=== PATIENT | male | born 1950 | race Caucasian/White ===

== ENCOUNTER 2019-07-19 14:08 | Emergency (ER) | payer MEDICARE, SELFPAY ==
[2019-07-19 14:51] VITALS: BP 161/88; PULSE 128; RESP 18; TEMP 36.3; O2SAT 92; BMI 20.7
--- NOTE | 2019-07-19 14:57 | PC.NURSE ---
Patient seated back in the waiting room at this time. Will continue to monitor.
--- NOTE | 2019-07-19 15:33 | ED_ITS ---
Entered by Taylor Alexandra, acting as scribe for Vinh De La Torre MD, [facility] [place] Jul 19, 2019 14:08 HPI - Neck Pain/Injury General: Chief Complaint: Neck Pain/Injury Stated Complaint: neck/shoulder pain/numbness Time Seen by Provider: 07/19/19 15:34 Source: patient, family and RN notes reviewed Mode of arrival: ambulatory Limitations: no limitations History of Present Illness: HPI Narrative: 69 yo male presents to ED with pain in the L side of his neck (began today) that goes down through his L shoulder. Last year he had shingles and he is now experiencing pain from his L elbow, under his L arm and down his L side. The L sided neck pain is not bad as long as he sits still; if he gets up and moves the pain is worse in his neck, if he raises his R arm too high it makes it worse. He states he has no rash. He said his L side is painful to touch. The pain in his neck and L shoulder are not reproducible. About 2 years ago the patient was noted to have a lung mass however, he declined to have it biopsied or worked up further as he did not want any intervention. At that time they told him it was near a nerve and it may grow and encompassed that nerve. He is not sure what the status of the lung masses MD complaint: neck pain Onset (ago): day(s) (1) Place: home Radiation: left shoulder and left upper extremity Severity: severe Quality: sharp and aching Duration: constant Relieving factors: remaining still Exacerbating factors: movement of extremity and movement of neck Context: other (recent history of shingles) Associated symptoms: Reports weakness; Denies headache(s) or nausea Treatments prior to arrival: other (Gabapentin) Review of Systems General: Reports: 10 or more systems reviewed and unremarkable except in HPI and below Const: Denies: fever, chills or body aches Eyes: Reports: blind spots; Denies: change in vision or blurry vision ENMT: Denies: throat pain, enlarged tonsils, painful swallowing, hoarseness, mouth pain or swelling of lips/tongue Card: Reports: chest pain; Denies: palpitations, edema or swelling of feet/ankles Resp: Denies: shortness of breath, productive cough or non-productive cough GI: Denies: abdominal pain, nausea or vomiting : Denies: flank pain, painful urination, urinary frequency, urinary urgency or urinary hesitancy Musc: Denies: neck pain, back pain or extremity swelling Skin/Breast: Denies: rash, itching or redness Neuro: Denies: headache, numbness in extremities or weakness in extremities Endo: Denies: excessive urination, excessive thirst or tired all the time PFSH ED PFSH: Social History Smoking and tobacco status: current every day smoker Physical Exam Const: COMMON NORMALS: no apparent distress, average body habitus, oriented x3, no limitations, healthy appearing, alert and well nourished HENMT: COMMON NORMALS: normocephalic, head/scalp atraumatic and moist oral mucous membranes HEAD & SCALP: normocephalic and atraumatic Eye: COMMON NORMALS: PERRL, EOMs intact bilaterally, conjunctivae normal and no scleral icterus CONJUNCTIVA: Yes conjunctivae normal PUPIL: Yes PERRL Neck/C-Spine: COMMON NORMALS: full ROM, supple, no meningeal signs, no JVD and no carotid bruits OTHER: No tenderness to palpation Chest: COMMONS NORMALS: inspection of chest normal and palpation of chest normal Resp: COMMON NORMALS: normal respiratory effort, no retractions, no use of accessory muscles, clear to auscultation bilaterally and percussion normal AUSCULTATION: clear to auscultation bilaterally PERCUSSION: percussion normal Cardio: COMMON NORMALS: no JVD, S1 normal heart sound, S2 normal heart sound, no gallops, no clicks, no murmurs, no rub and peripheral pulses 2+ throughout RATE: tachycardic (128) RHYTHM: abnormal rhythm irregularly irregular HEART SOUNDS: S1 normal and S2 normal PERIPHERAL PULSES: pulses 2+ throughout GI: COMMON NORMALS: normal to inspection, nondistended, normoactive bowel soun ds, soft to palpation, non-tender, no hepatosplenomegaly, no masses and no bruits PALPATION: Yes soft and Yes no hepatosplenomegaly : COMMON NORMALS: Yes no CVA tenderness BLADDER/KIDNEY EXAM: Yes no CVA tenderness Back/Pelvis: COMMON NORMALS: no CVA tenderness Extremity: COMMON NORMALS: normal to inspection, full ROM, normal capillary refill, no calf tenderness and no pedal edema Neuro: COMMON NORMALS: oriented x3 SENSORIUM/ORIENTATION: Yes alert MENINGEAL SIGNS: Yes no meningeal signs Skin: COMMON NORMALS: no rashes or lesions noted, no wounds, skin turgor normal, no jaundice, no petechiae and no mottling GENERAL SKIN EXAM: no rashes or lesions noted and turgor normal Course Vital Signs: Vital signs: Vital Signs Temperature 97.4 F L 07/19/19 14:51 Pulse Rate 121 H 07/19/19 17:30 Respiratory Rate 20 H 07/19/19 17:30 Blood Pressure 146/104 07/19/19 17:30 Pulse Oximetry 94 07/19/19 17:30 MDM - Neck Pain/Injury MDM Narrative: Medical decision making narrative: 69-year-old gentleman who presents to the emergency department with left-sided neck pain. He has a history of a left upper lobe lung mass that he declined to have investigated about 2 years ago. On evaluation here he had negative troponin x2, however chest x-ray shows an enlargement of the lung mass. I discussed further evaluation of the mass with a CT scan, however the patient declined since he says he is not going to pursue any investigation. He just wants pain control and to be able to rest as he has not been sleeping because of the pain. He was given a dose of intravenous morphine which helped with his pain. He was also discharged home with prescription for Percocet. He was advised to follow-up with his primary care provider for further discussions on management options going forward including possible hospice care. Discussed possible complications going forward including thoracic outlet obstruction. Lab Data: Labs: Lab Results 07/19/19 07/19/19 07/19/19 Range/Units 16:20 16:20 16:20 WBC 11.4 H (4.0-10.0) 10^3/ uL RBC 4.47 (4.1-5.3) 10^6/u L Hgb 10.8 L (11.7-16.6) g/dL Hct 36.4 L (42.0-52.0) % MCV 81.4 (80-94) fL MCH 24.2 L (28.0-34.0) pg MCHC 29.7 L (30.0-36.0) g/dL RDW 16.1 H (12.1-15.1) % Plt Count 475 H (130-400) 10^3/c mm MPV 10.2 (7.4-10.4) fL Neut % (Auto) 83.0 % Lymph % (Auto) 7.9 % [place] % (Auto) 7.7 % Eos % (Auto) 0.7 % Baso % (Auto) 0.4 % Neut # (Auto) 9.4 H (1.8-7.7) 10^3/u L Lymph # (Auto) 0.9 (0.8-4.8) 10^3/u L [place] # (Auto) 0.9 (0.2-0.9) 10^3/u L Eos # (Auto) 0.1 (0.0-0.8) 10^3/u L Baso # (Auto) 0.1 (0.0-0.1) 10^3/u L Nucleated RBC % (a uto) 0 % Nucleated RBCs # 0.0 /100WBC D-Dimer 0.41 (0-0.59) ug/mIFE U Sodium 137 (136-145) mmol/L Potassium 4.4 (3.5-5.1) mmol/L Chloride 101 (98-107) mmol/L Carbon Dioxide 24 (22-29) mmol/L Anion Gap 16.4 (5-19) BUN 17 (8-23) mg/dL Creatinine 0.7 (0.7-1.2) mg/dL GFR Calculation 111.5 (90-130) mL/min Glucose 109 (65-115) mg/dL Calcium 12.4 H (8.5-10.5) mg/dL Total Bilirubin 0.2 (0.15-1.2) mg/dL AST 12 (0-40) U/L ALT 10 (0-41) U/L Alkaline Phosphata se 131 H (40-130) IU/L Troponin T Baselin e (0-15) ng/mL Troponin T 120 Min morongo (0-15) ng/mL Delta Troponin T (0-10) ABS# NT-Pro-B Natriuret Pep 265 H (0-125) pg/mL Total Protein 8.0 (6.6-8.7) g/dL Albumin 4.2 (3.5-5.2) g/dL Globulin 3.8 (1.3-4.6) g/dL 07/19/19 07/19/19 Range/Units 16:20 18:16 WBC (4.0-10.0) 10^3/ uL RBC (4.1-5.3) 10^6/u L Hgb (11.7-16.6) g/dL Hct (42.0-52.0) % MCV (80-94) fL MCH (28.0-34.0) pg MCHC (30.0-36.0) g/dL RDW (12.1-15.1) % Plt Count (130-400) 10^3/c mm MPV (7.4-10.4) fL Neut % (Auto) % Lymph % (Auto) % [place] % (Auto) % Eos % (Auto) % Baso % (Auto) % Neut # (Auto) (1.8-7.7) 10^3/u L Lymph # (Auto) (0.8-4.8) 10^3/u L [place] # (Auto) (0.2-0.9) 10^3/u L Eos # (Auto) (0.0-0.8) 10^3/u L Baso # (Auto) (0.0-0.1) 10^3/u L Nucleated RBC % (a uto) % Nucleated RBCs # /100WBC D-Dimer (0-0.59) ug/mIFE U Sodium (136-145) mmol/L Potassium (3.5-5.1) mmol/L Chloride (98-107) mmol/L Carbon Dioxide (22-29) mmol/L Anion Gap (5-19) BUN (8-23) mg/dL Creatinine (0.7-1.2) mg/dL GFR Calculation (90-130) mL/min Glucose (65-115) mg/dL Calcium (8.5-10.5) mg/dL Total Bilirubin (0.15-1.2) mg/dL AST (0-40) U/L ALT (0-41) U/L Alkaline Phosphata se (40-130) IU/L Troponin T Baselin e 11 (0-15) ng/mL Troponin T 120 Min morongo 10.20 (0-15) ng/mL Delta Troponin T -0.80 L (0-10) ABS# NT-Pro-B Natriuret Pep (0-125) pg/mL Total Protein (6.6-8.7) g/dL Albumin (3.5-5.2) g/dL Globulin (1.3-4.6) g/dL EKG Data^: EKG 1: Attestation: I personally reviewed and interpreted this EKG as follows: EKG interpretation date: 07/19/19 EKG interpretation time: 16:29 Prior EKG tracings: not available for review Interpretation: Sinus tachycardia with PAC. No ST changes. Right ventricular conduction delay EKG 2: Attestation: I personally reviewed and interpreted this EKG as follows: EKG interpretation date: 07/19/19 EKG interpretation time: 18:25 Prior EKG tracings: available for review Interpretation: Unchanged from EKG from earlier today. Discharge Plan Discharge Patient Disposition: Home, Self-Care Clinical Impression: Lung mass, Neck pain, Hypercalcemia Condition: Stable Prescriptions: New oxycodone-acetaminophen 5-300 mg tablet 1 tab PO Q6H PRN (Reason: lung mass) Qty: 30 RF: 0 Continued albuterol sulfate 2.5 mg /3 mL (0.083 %) solution for nebulization 2.5 mg inhalation Q6H PRN (Reason: Shortness Of Breath) RF: 0 lisinopril 20 mg tablet 20 mg PO DAILY RF: 0 Aspir-81 81 mg Tablet,Delayed Release (Dr/Ec) See Rx Instructions .ROUTE .COMPLEX RF: 0 gabapentin 300 mg capsule 300 mg PO TID RF: 0 Ventolin HFA 90 mcg/actuation HFA aerosol inhaler See Rx Instructions .ROUTE .COMPLEX RF: 0 Trelegy Ellipta 100-62.5-25 mcg Blister With Device 1 inh INHALATION DAILY RF: 0 Discontinued acetaminophen [Tylenol Arthritis Pain] 650 mg Tablet Extended Release 1,300 mg PO PRN RF: 0 Discharge Orders: Discharge Order (Routine); Ordered 07/19/19 Ordered By: Vinh De La Torre Referrals: Rene Holder DO [Family Provider] - 7-10 days Activity Restrictions/Additional Instructions: Return for any new or worsening symptoms. Follow-up with your primary care provider within 1 week to discuss further treatment options including possible hospice. Take the medications as needed for pain. Coding Level of Care Code ED Sales Development Consultant for Chg Fwd Exam Comprehensive The documentation recorded by the Nasrin tapia Valerie R, accurately reflects the service I personally performed and the decisions made by Britt khanna Adegoke I, MD, [facility] [place] Jul 19, 2019 14:08
--- NOTE | 2019-07-19 15:39 | PC.NURSE ---
Patient reports that he woke up with neck pain. Patient also reports that he has numbness and pain from his elbow to his auxiliary. Patient states that when he lifts his right arm he gets pain in his left arm.
--- NOTE | 2019-07-19 16:10 | ECG_ITS ---
Measurements Intervals [place] Rate: 117 P: 79 OR: 144 QRS: 83 QRSD: 88 T: 75 QT: 274 QTc: 382 SINUS TACHYCARDIA WITH OCCASIONAL SUPRAVENTRICULAR PREMATURE COMPLEXES POSSIBLE RIGHT VENTRICULAR CONDUCTION DELAY [RSR (QR) IN V1/V2] Compared to ECG 03/28/2018 05:50:38 Sinus rhythm no longer present Electronically Signed On 07-20-2019 17:10:08 SOUND RECORDIST by Shelly Thomson M.D. [email or web address]
--- NOTE | 2019-07-19 16:11 | XR_ITS ---
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 Comparison s were made to March 28, 2018 a tumor was seen in this area but this was small. At that exam there was lymphadenopathy seen. 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 There is chronic obstructive pulmonary disease.
[2019-07-19 16:37] LABS: Basophils # 0.1 10^3/uL (0.0-0.1); Basophils % 0.4 %; Eosinophils # 0.1 10^3/uL (0.0-0.8); Eosinophils % 0.7 %; Hematocrit 36.4 % (42.0-52.0); Hemoglobin 10.8 g/dL (11.7-16.6); Lymphocytes # 0.9 10^3/uL (0.8-4.8); Lymphocytes % 7.9 %; Mean Corpuscular HGB Conc 29.7 g/dL (30.0-36.0); Mean Corpuscular Hemoglobin 24.2 pg (28.0-34.0); Mean Corpuscular Volume 81.4 fL (80-94); Mean Platelet Volume 10.2 fL (7.4-10.4); Monocytes # 0.9 10^3/uL (0.2-0.9); Monocytes % 7.7 %; Neutrophils # 9.4 10^3/uL (1.8-7.7); Nucleated Red Blood Cells % 0 %; Platelet Count 475 10^3/cmm (130-400); Red Blood Count 4.47 10^6/uL (4.1-5.3); Red Cell Distribution Width 16.1 % (12.1-15.1); White Blood Count 11.4 10^3/uL (4.0-10.0)
[2019-07-19 16:39] LABS: D Dimer 0.41 ug/mIFEU (0-0.59)
[2019-07-19 16:48] LABS: Troponin(5th) Baseline 11 ng/mL (0-15)
[2019-07-19 16:58] LABS: Alanine Aminotransferase 10 U/L (0-41); Albumin Level 4.2 g/dL (3.5-5.2); Alkaline Phosphatase 131 IU/L (40-130); Anion Gap 16.4 (5-19); Aspartate Amino Transferase 12 U/L (0-40); Blood Urea Nitrogen 17 mg/dL (8-23); Calcium 12.4 mg/dL (8.5-10.5); Carbon Dioxide 24 mmol/L (22-29); Chloride 101 mmol/L (98-107); Creatinine Clr Calc Pharmacy 82.4216; Globulin 3.8 g/dL (1.3-4.6); Glomerular Filtration Rate 111.5 mL/min (90-130); Glucose 109 mg/dL (65-115); NT Pro B Type Natriuretic Pept 265 pg/mL (0-125); Potassium 4.4 mmol/L (3.5-5.1); Sodium 137 mmol/L (136-145); Total Bilirubin 0.2 mg/dL (0.15-1.2)
[2019-07-19 17:30] VITALS: BP 146/104; PULSE 121; RESP 20; O2SAT 94
[2019-07-19] MEDS: sodium chloride 0.9% 1,000 ML 999 ML IV (17:52)
[2019-07-19] MEDS: orphenadrine 30 mg/mL Inj 2 mL 60 MG IV (17:55)
[2019-07-19] MEDS: morphine 4 mg/mL SDV 1 mL IVP (17:57)
--- NOTE | 2019-07-19 18:10 | ECG_ITS ---
Measurements Intervals [place] Rate: 115 P: 80 MA: 116 QRS: 86 QRSD: 89 T: 79 QT: 274 QTc: 379 SINUS TACHYCARDIA WITH SHORT MA INTERVAL WITH OCCASIONAL SUPRAVENTRICULAR PREMATURE COMPLEXES POSSIBLE RIGHT VENTRICULAR CONDUCTION DELAY [RSR (QR) IN V1/V2] Compared to ECG 03/28/2018 05:50:38 Short MA interval now present Sinus rhythm no longer present Electronically Signed On 07-20-2019 18:05:21 CROSSBOW MAKER by Shelly Thomson M.D. [email or web address]
--- NOTE | 2019-07-19 19:10 | PC.NURSE ---
report received from LAN Owusu and care transferred to LAN Larkin
[2019-07-19 19:13] VITALS: BP 144/70; PULSE 116; RESP 17; O2SAT 92
== END 2019-07-19 19:13 | disposition home or self-care (01) ==
PROVIDERS: Emergency Provider Family Medicine; Family Provider Family Medicine
DX: R91.8 Other nonspecific abnormal finding of lung field (principal); M54.2 Cervicalgia; E83.52 Hypercalcemia; R07.9 Chest pain, unspecified; F17.200 Nicotine dependence, unspecified, uncomplicated
CPT/HCPCS: 36415; 71046; 80053; 83880; 84484; 85025; 85378; 93005; 96361; 96374; 96375; 99282; 99284; J2270; J2360; J7030